=== PATIENT | male | born 1995 | race Caucasian/White ===

== ENCOUNTER 2024-11-17 23:47 | Emergency (ER) | payer SELFPAY ==
[2024-11-18] VITALS: BP 147/86
[2024-11-18 00:01] VITALS: BMI 22.9
[2024-11-18] MEDS: ATIVAN 2 MG IM (00:45)
[2024-11-18] MEDS: HALDOL 5 MG IM (00:45)
[2024-11-18] MEDS: LAMICTAL 25 MG PO (01:18)
[2024-11-18] MEDS: ATIVAN 2 MG PO (01:18)
--- NOTE | 2024-11-18 01:31 | ED.GENMED ---
History of Present Illness
General
Chief Complaint: Suicidal Ideation
Source: patient and police
Exam Limitations: other (Uncooperative and agitated)
Time Seen by Provider: 11/18/24 00:10
History of Present Illness
History of Present Illness:
Patient presents to ED for medical evaluation after 302 petition filed by police officers, as patient has expressed suicidal thoughts with self harming behavior this evening, witnessed by his brother. Upon arrival, patient is agitated and
uncooperative. Unable to obtain any further information from the patient. Patient does present with superficial wound in multiple areas of his body, including chest and forearm.
Past History
Past History
ED Past Medical History: None
ED Past Surgical History: None
Patient has exhibited threatening behavior?: No
Social History
Tobacco: Non-smoker
Alcohol: Occasional
Drug: None
Personal: Single
Living: with family
Employment: Employed
Review of Systems
Review of Systems
Allergies reviewed?: Yes
Unable to obtain full review of systems at this time due to: due to acuity
All Other Systems: Not applicable
Phy Exam
Physical Exam
Physical Exam:
Physical Exam
General: mild distress, not acutely ill. agitated
Head: nc/at.
Neck: supple. normal range of motion.
Neuro: alert and awake. no focal neurological deficits
Skin: Superficial wound noted on anterior chest wall, shoulder, forearm, without active bleeding.
Psychiatric: agitated and uncooperative
Extremities: no edema.
Course
Orders/Labs/Results
Orders:
Orders
11/17/24 23:50
Crisis Consult Urgent
Reason for Consult: SI, tried to kill himself
11/18/24 00:00
1:1 Observation - Suicide/ Violent Behavior As Directed
Crisis Consult Urgent
Reason for Consult: SI
11/18/24 00:26
1:1 Observation - Suicide/ Violent Behavior As Directed
Restraints - Violent As Directed
Restraint Type-: Locked-4 point/4 rails
Apply From (date): 11/18/24
Apply from (time): 00:26
Remove (date): 11/18/24
Remove (time): 04:26
11/18/24 00:41
Haloperidol Lactate [Haldol] 5 mg .ROUTE .STK-MED ONE
Haloperidol Lactate [Haldol] 5 mg IM NOW STA
Lorazepam [Ativan] 2 mg .ROUTE .STK-MED ONE
Lorazepam [Ativan] 2 mg IM NOW STA
11/18/24 01:12
Lamotrigine [Lamictal] 25 mg PO NOW STA
Lorazepam [Ativan] 2 mg PO NOW STA
11/18/24 01:36
Urine Drug Abuse Screen Urgent
Date Specimen was Collected: 11/18/24
Time Specimen was Collected: 01:14
11/18/24 01:39
Acetaminophen Urgent
Alcohol Urgent
Complete Blood Count/No Diff Urgent
Comprehensive Metabolic Panel Urgent
Salicylate Urgent
11/18/24 04:26
Restraints - Violent As Directed
Restraint Type-: Locked- R Wrist/4 rails
Locked- L Ankle/4 rails
Apply From (date): 11/18/24
Apply from (time): 04:26
Remove (date): 11/18/24
Remove (time): 08:26
Restraints - Violent As Directed
Restraint Type-: Locked-4 point/4 rails
Apply From (date): 11/18/24
Apply from (time): 04:26
Remove (date): 11/18/24
Remove (time): 08:26
11/18/24 05:34
1:1 Observation - Suicide/ Violent Behavior As Directed
11/18/24 05:36
Restraints - Violent As Directed
Restraint Type-: Locked- L Wrist/4 rails
Locked- R Ankle/4 rails
Apply From (date): 11/18/24
Apply from (time): 05:36
Remove (date): 11/18/24
Remove (time): 09:36
11/18/24 05:37
1:1 Observation - Suicide/ Violent Behavior As Directed
Abnormal Lab Results
11/18/24
01:39
RBC 4.60 L 10^6/uL
(4.70-6.10)
MCH 32.4 H pg
(27.0-31.0)
Carbon Dioxide 20 L mmol/L
(22-30)
BUN 6 L mg/dl
(9-20)
Glucose 114 H mg/dl
(70-99)
Salicylates < 1.0 L mg/dl
(2.0-20.0)
Acetaminophen < 10 L ug/ml
(10-30)
11/18/24 01:39
11/18/24 01:39
Vital Signs
Initial and Last Documented VS:
Initial Vital Signs
Temp Pulse Resp BP Pulse Ox
97.9 F 146 20 147/86 96
11/18/24 00:00 11/18/24 00:00 11/18/24 00:00 11/18/24 00:00 11/18/24 00:00
Last Documented Vital Signs
Temp Pulse Resp BP Pulse Ox
99.0 F 88 18 125/68 98
11/18/24 10:00 11/18/24 10:00 11/18/24 10:00 11/18/24 10:00 11/18/24 10:00
MDM/Problems Addressed
MDM/Problems Addressed:
Shortly upon arrival in ED bed, patient cut himself on his left forearm with a piece of wire. Superficial linear laceration noted, not requiring any suture repair. Local wound care will be applied. Patient given medications and placed in 4 point
restraints for safety. 302 petition will be upheld. Patient will require psychiatric evaluation and treatment.
*Critical Care Note
Total Time (30-74mins, 75-104mins- exclusive of procedures): Not Applicable
ED Attending Note
-
Portions of this chart may have been created with voice recognition software.� Occasional wrong word or��sound alike� substitutions may have occurred due to the inherent limitations of voice recognition software.
Discharge Plan
Departure
Patient Disposition: Psych Facility
Date of Disposition: 11/18/24
Time of Disposition: 01:36
Patient Status:: 302
Discharge Problem:
Suicidal behavior
Prescriptions:
No Action
levofloxacin 500 MG tablet
500 mg PO DAILY Qty: 5 0RF
metronidazole 500 MG tablet
500 mg PO TID Qty: 15 0RF
Referrals:
UNKNOWN - PT NOT,INTERVIEWE [Family Provider] -
Interventions
Interventions:
*Risk Screen - Suicide Last Done: 11/17/24 23:51
*General Assessment Last Done: 11/17/24 23:51
*Neglect/Abuse Screening Last Done: 11/17/24 23:51
ED- Fall Risk Assessment Last Done: 11/18/24 08:00
*ED COVID-19 Vaccine History Last Done: 11/17/24 23:51
*Nursing Disposition Last Done: 11/18/24 11:35
ED-Psychological Assessment Last Done: 11/18/24 08:00
Discharge Date and Time
Discharge Date/Time: 11/18/24 11:30
Print Language: WELSH
--- NOTE | 2024-11-18 01:49 | PTCARENOTE ---
pt arrived with police after family called 911 for domestic issue at home. pt was making suicidal threats and pt attempting to kill himself. pt arrived aox4 and rambling about how his step father cheated on his mother. pt conversant with this RN and
cooperative, provided UA and changed in paper scrubs. pt was settled and waiting for crisis to evaluate him. approx 0015 security came to get this RN to notify the pt had cut his left wrist with a wire. pt had been given the TV remote by security
and pt was able to get spring out of remote and used wire to cut his wrist. security was at bedside along with 3 police officers at the time of this event. pt was found hiding wire into between his butt crack by security who noticed activity while
watching camera from out front. Dr Parker notified and pt placed in 4 point leather restraints. pt remained calm as restraints were applied and lacerations were cleaned up and wrapped. tech placed at bedside to monitor pt more closely. a few minutes
later the pt had managed to slip his left wrist out of the restraints. when staff came in to restraint wrist again pt began to cry, yell and fight the staff holding him down. Dr Parker made aware and IM ativan as well as haldol ordered and given.
approx 0045. see MAR. pt then bit his right shoulder. pt stating he wants to kill his step dad. pt very tearful and crying. pt stating 'i want to leave, i want to get out of here'. pt began to jerk around and rip his shirt off, crying and yelling
again. shirt was removed as well as blanket and bedsheet, side table removed too. pt ordered more ativan PO and his scheduled lamictal 25 mg. see MAR.
[2024-11-18 01:52] LABS: Hematocrit 42.1 % (39.0-52.0); Hemoglobin 14.9 g/dL (13.0-18.0); Mean Corp Hgb Conc. 35.4 g/dL (33.0-37.0); Mean Corpuscular Hgb 32.4 pg (27.0-31.0); Mean Corpuscular Volume 91.5 fL (80.0-94.0); Mean Platelet Volume 9.2 fL (7.4-10.4); Platelet Count 330 10^3/uL (130-400); Red Cell Dist. Width 12.5 % (11.5-14.5); White Blood Cell Count 8.9 10^3/uL (4.8-10.8)
[2024-11-18 02:05] LABS: Amphetamines Negative (Negative); Barbiturates Negative (Negative); Benzodiazepines Negative (Negative); Buprenorphine Negative (Negative); Cocaine Negative (Negative); Marijuana Negative (Negative); Methadone Negative (Negative); Methamphetamines Negative (Negative); Opiates Negative (Negative); Phencyclidine Negative (Negative); Tricyclic Antidepressants Negative (Negative)
[2024-11-18 02:05] LABS: ALT (SGPT) 25 U/L (0-50); AST (SGOT) 28 U/L (17-59); Acetaminophen < 10 ug/ml (10-30); Alcohol 158 mg/dl; Alkaline Phosphatase 77 U/L (38-126); Blood Urea Nitrogen 6 mg/dl (9-20); Calcium 9.9 mg/dl (8.4-10.2); Carbon Dioxide 20 mmol/L (22-30); Chloride 104 mmol/L (98-107); Estimated Creatinine Clearance 123 ml/min; Glucose 114 mg/dl (70-99); Potassium 3.9 mmol/L (3.5-5.1); Salicylate < 1.0 mg/dl (2.0-20.0); Sodium 142 mmol/L (135-145); Total Bilirubin 0.6 mg/dl (0.2-1.3); Total Protein 7.5 g/dl (6.3-8.2); eGFR > 60.00
[2024-11-18 03:15] VITALS: BP 116/50
[2024-11-18 07:30] VITALS: BP 114/65
[2024-11-18 08:00] VITALS: BP 116/61
[2024-11-18 10:00] VITALS: BP 125/68
== END 2024-11-18 11:30 ==
LOC: EMR 23:47
PROVIDERS: EMERGENCY PHYSICIAN Emergency Medicine
DX: S51.812A Laceration without foreign body of left forearm, initial encounter (principal); X78.8XXA Intentional self-harm by other sharp object, initial encounter; R45.1 Restlessness and agitation
CPT/HCPCS: 96372; 99285; 80053; 80143; 80179; 80306; 82077; 85027

== ENCOUNTER 2025-04-28 08:01 | Emergency (ER) | payer BC, SELFPAY ==
[2025-04-28 08:04] VITALS: BP 129/97
[2025-04-28 08:30] VITALS: BP 128/82
--- NOTE | 2025-04-28 08:30 | ED.GENMED ---
History of Present Illness
General
Chief Complaint: Crisis Evaluation
Source: patient and family
Time Seen by Provider: 04/28/25 08:16
History of Present Illness
History of Present Illness:
29-year-old male presents to the emergency room for help with feeling psychotic. Patient admits to feeling [id number] and manic. He has a history of bipolar disease. He uses marijuana and alcohol but denies any other drug use. He has been
exploring on the Internet and has been exposed to things that seems to have set him off. He is perseverating on being a DJ music. He admits to previous suicide attempts. Currently he states he would like to be a second official [employer] and kill
himself to save humanity.
Past History
Past History
ED Past Medical History: None
ED Past Surgical History: None
Patient has exhibited threatening behavior?: No
Social History
Tobacco: Non-smoker
Alcohol: Occasional
Drug: None
Personal: Single
Living: with family
Employment: Employed
Phy Exam
Physical Exam
Physical Exam:
General: Awake, Alert, Oriented X3. Manic, pressured speech, flight of ideas
Vitals: unremarkable
Head: Atraumatic
Eyes: Pupils equal, EOMI
Throat: Airway intact, no exudates
Neck: Trachea midline
Lungs: Clear and equal b/l
Heart: Regular rate, no murmurs
Neuro: Nonfocal
Skin: Warm, dry, no rash
Extremities: pulses equal b/l, no edema
Course
Orders/Labs/Results
Orders:
Orders
04/28/25 08:07
1:1 Observation - Suicide/ Violent Behavior As Directed
Crisis Consult Urgent
Reason for Consult: +SI
04/28/25 08:29
Asenapine Sublingual [Saphris] 5 mg SL NOW STA
04/28/25 08:54
Acetaminophen Urgent
Alcohol Urgent
Complete Blood Count/With Diff Urgent
Salicylate Urgent
04/28/25 10:02
Urine Drug Abuse Screen Urgent
Date Specimen was Collected: 04/28/25
Time Specimen was Collected: 10:00
Abnormal Lab Results
04/28/25 04/28/25
08:54 10:02
RBC 4.59 L 10^6/uL
(4.70-6.10)
MCH 31.4 H pg
(27.0-31.0)
Absolute Monos (auto) 0.7 H 10^3/uL
(0.1-0.6)
Lymphocytes % 17.2 L %
(20.5-51.1)
Monocytes % 10.0 H %
(1.7-9.3)
Salicylates < 1.0 L mg/dl
(2.0-20.0)
Acetaminophen < 10 L ug/ml
(10-30)
U Marijuana (THC) Screen Positive H
(Negative)
04/28/25 08:54
Vital Signs
Initial and Last Documented VS:
Initial Vital Signs
Temp Pulse Resp BP Pulse Ox
98.1 F 113 16 129/97 99
04/28/25 08:04 04/28/25 08:04 04/28/25 08:04 04/28/25 08:04 04/28/25 08:04
Last Documented Vital Signs
Temp Pulse Resp BP Pulse Ox
98.6 F 95 22 128/82 99
04/28/25 08:30 04/28/25 09:02 04/28/25 08:30 04/28/25 08:30 04/28/25 08:35
MDM/Problems Addressed
Differential Diagnosis Includes:
Gertrude, acute psychosis, suicidal ideations
MDM/Problems Addressed:
Patient presents voluntarily obtain psychiatric help. He readily admits that he is manic and psychotic. No medical issues to prevent psychiatric treatment. Patient medically cleared
*Pulse Oximetry
SaO2: 99
Oxygen Mode of Delivery: Room air
Patient hypoxic: no
*Critical Care Note
Total Time (30-74mins, 75-104mins- exclusive of procedures): Not Applicable
ED Attending Note
-
Portions of this chart may have been created with voice recognition software.� Occasional wrong word or��sound alike� substitutions may have occurred due to the inherent limitations of voice recognition software.
Discharge Plan
Departure
Patient Disposition: Psych Facility
Date of Disposition: 04/28/25
Time of Disposition: 11:06
Patient with high blood pressure during this ER visit?: No
Discharge Problem:
Acute psychosis, Bipolar disorder
Prescriptions:
No Action
levofloxacin 500 MG tablet
500 mg PO DAILY Qty: 5 0RF
metronidazole 500 MG tablet
500 mg PO TID Qty: 15 0RF
Referrals:
NONE,* [Family Provider, Internal Medicine]
Interventions
Interventions:
*Risk Screen - Suicide Last Done: 04/28/25 08:04
*General Assessment Last Done: 04/28/25 09:03
*Neglect/Abuse Screening Last Done: 04/28/25 08:04
*ED- Fall Risk Assessment Last Done: 04/28/25 09:03
*ED COVID-19 Vaccine History Last Done: 04/28/25 09:03
*Nursing Disposition Last Done: 04/28/25 12:07
ED-Psychological Assessment Last Done: 04/28/25 09:07
Discharge Date and Time
Discharge Date/Time: 04/28/25 12:08
Print Language: VINCENTIAN
[2025-04-28] MEDS: SAPHRIS 5 MG SL (08:45)
[2025-04-28 09:01] LABS: Hematocrit 41.1 % (39.0-52.0); Hemoglobin 14.4 g/dL (13.0-18.0); Mean Corp Hgb Conc. 35.0 g/dL (33.0-37.0); Mean Corpuscular Volume 89.5 fL (80.0-94.0); Nucleated Red Blood Cells % 0 % (-); Platelet Count 304 10^3/uL (130-400); Red Cell Dist. Width 12.3 % (11.5-14.5)
[2025-04-28 09:24] LABS: Salicylate < 1.0 mg/dl (2.0-20.0)
[2025-04-28 09:33] LABS: Acetaminophen < 10 ug/ml (10-30)
== END 2025-04-28 12:08 ==
LOC: EMR 08:01
PROVIDERS: EMERGENCY PHYSICIAN Emergency Medicine
DX: R45.851 Suicidal ideations (principal); F23 Brief psychotic disorder; F30.9 Manic episode, unspecified; F31.9 Bipolar disorder, unspecified; F12.90 Cannabis use, unspecified, uncomplicated; Z91.51 Personal history of suicidal behavior
CPT/HCPCS: 99285; 80143; 80179; 80306; 82077; 85025

== ENCOUNTER 2025-06-01 10:06 | Emergency (ER) | payer BC, SELFPAY ==
[2025-06-01 10:13] VITALS: BP 131/82
--- NOTE | 2025-06-01 10:49 | ED.GENMED ---
History of Present Illness
General
Chief Complaint: Crisis Evaluation
Source: patient
Time Seen by Provider: 06/01/25 10:38
History of Present Illness
History of Present Illness:
29-year-old male with history of bipolar disorder and psychosis with prior suicide attempt presents in referral from family doctor's office for potential medication adjustment. He is on Lamictal 50 mg twice a day. He feels like he is getting more
manic. He missed his dose of medication last evening as he fell asleep on the couch. He is concerned that with his increasing gertrude that he may progress into suicidality again. He is not currently suicidal. He is with his parents. No other
complaints.
Past History
Past History
ED Past Medical History: None
ED Past Surgical History: None
Patient has exhibited threatening behavior?: No
Social History
Tobacco: Non-smoker
Alcohol: Occasional
Drug: None
Personal: Single
Living: with family
Employment: Employed
Phy Exam
Physical Exam
Physical Exam:
General: Well-appearing male no acute respiratory distress heart: Regular rate and rhythm
Lungs: Clear no wheeze
Abdomen is soft nontender
Psychiatric exam: Cooperative calm somewhat of an elevated affect but is denying any current thoughts of harming self.
Ext: no cyanosis or edema.
Course
Orders/Labs/Results
Orders:
Orders
06/01/25 10:44
PSYCHIATRY CONSULT Urgent
Consulting Provider: James Rivera
Was physician already notified: Yes
Crisis Consult Urgent
Reason for Consult: gertrude
06/01/25 14:03
Complete Blood Count/With Diff Urgent
Comprehensive Metabolic Panel Urgent
Abnormal Lab Results
06/01/25
14:03
RBC 4.36 L 10^6/uL
(4.70-6.10)
MCH 31.4 H pg
(27.0-31.0)
Lymphocytes % 15.5 L %
(20.5-51.1)
Glucose 101 H mg/dl
(70-99)
06/01/25 14:03
06/01/25 14:03
Vital Signs
Initial and Last Documented VS:
Initial Vital Signs
Temp Pulse Resp BP Pulse Ox
98.0 F 92 16 131/82 100
06/01/25 10:13 06/01/25 10:13 06/01/25 10:13 06/01/25 10:13 06/01/25 10:13
Last Documented Vital Signs
Temp Pulse Resp BP Pulse Ox
98.0 F 92 16 131/82 100
06/01/25 10:13 06/01/25 10:13 06/01/25 10:13 06/01/25 10:13 06/01/25 10:51
*Pulse Oximetry
SaO2: 100
Oxygen Mode of Delivery: Room air
Patient hypoxic: no
*Critical Care Note
Total Time (30-74mins, 75-104mins- exclusive of procedures): Not Applicable
Update Note
Update Note:
Patient seen by crisis as well as psychiatry. Patient wishes to come off of his Lamictal. Psychiatry recommended stopping Lamictal. And will start Depakote. Basic labs ordered. No indication for inpatient psychiatric treatment.
Stable for discharge with outpatient pyschiatric follow up.
ED Attending Note
-
Portions of this chart may have been created with voice recognition software.� Occasional wrong word or��sound alike� substitutions may have occurred due to the inherent limitations of voice recognition software.
Discharge Plan
Departure
Patient Disposition: Home (Routine Discharge)
Date of Disposition: 06/01/25
Time of Disposition: 13:50
Patient with high blood pressure during this ER visit?: No
Discharge Problem:
Gertrude
Prescriptions:
New
divalproex [Depakote] 250 mg tablet,delayed release (DR/EC)
250 mg PO BID Qty: 60 0RF
No Action
levofloxacin 500 MG tablet
500 mg PO DAILY Qty: 5 0RF
metronidazole 500 MG tablet
500 mg PO TID Qty: 15 0RF
Referrals:
UNKNOWN - PT DOES,NOT KNOW [Family Provider]
Activity Restrictions/Additional Instructions:
Stop Remeron and Lamictal. Continue Zyprexa 20 mg at bedtime. Start Depakote 250 mg twice a day. If you need additional help sleeping you may add melatonin 5mg to be taken 2 hours prior to sleep. Follow up with psychiatry as an outpatient.
Return if needed.
Interventions
Interventions:
*Risk Screen - Suicide Last Done: 06/01/25 10:07
*General Assessment Last Done: 06/01/25 10:50
*Neglect/Abuse Screening Last Done: 06/01/25 10:48
*ED- Fall Risk Assessment Last Done: 06/01/25 10:50
*ED COVID-19 Vaccine History Last Done: 06/01/25 10:50
*Nursing Disposition Last Done: 06/01/25 14:45
ED-Psychological Assessment Last Done: 06/01/25 10:51
Discharge Date and Time
Discharge Date/Time: 06/01/25 14:45
Print Language: KYRGYZ
[2025-06-01 14:09] LABS: Hematocrit 40.1 % (39.0-52.0); Hemoglobin 13.7 g/dL (13.0-18.0); Mean Corp Hgb Conc. 34.2 g/dL (33.0-37.0); Mean Corpuscular Volume 92.0 fL (80.0-94.0); Nucleated Red Blood Cells % 0 % (-); Platelet Count 256 10^3/uL (130-400); Red Cell Dist. Width 12.2 % (11.5-14.5)
[2025-06-01 14:29] LABS: ALT (SGPT) 38 U/L (0-50); AST (SGOT) 28 U/L (17-59); Albumin 4.9 g/dl (3.5-5.0); Alkaline Phosphatase 71 U/L (38-126); Blood Urea Nitrogen 10 mg/dl (9-20); Calcium 10.2 mg/dl (8.4-10.2); Carbon Dioxide 25 mmol/L (22-30); Chloride 104 mmol/L (98-107); Glucose 101 mg/dl (70-99); Potassium 4.1 mmol/L (3.5-5.1); Sodium 137 mmol/L (135-145); Total Protein 7.2 g/dl (6.3-8.2); eGFR > 60.00
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
== END 2025-06-01 14:45 | disposition home or self-care (01) ==
LOC: EMR 10:06
PROVIDERS: Physician Assistant; CONSULT PHYSICIAN Psychiatry & Neurology Psychiatry; EMERGENCY PHYSICIAN Emergency Medicine
DX: F30.9 Manic episode, unspecified (principal); Z91.51 Personal history of suicidal behavior; Z81.8 Family history of other mental and behavioral disorders
CPT/HCPCS: 99283; 80053; 85025